=== PATIENT | male | born 1990 | race Hispanic/Latino ===

== ENCOUNTER 2024-10-25 00:11 | Emergency (ER) | payer SELFPAY ==
[2024-10-25] MEDS ORDERED: ONDANSETRON 4 MG/2 ML VIAL ONE (00:45)
[2024-10-25] MEDS ORDERED: NA CHLORIDE 0.9% 1,000 ML ONE (00:45)
[2024-10-25] MEDS ORDERED: MORPHINE 4 MG/ML SYR ONE (00:45)
[2024-10-25 01:07] LABS: Hemoglobin 16.5 g/dL (13.6-17.9); MCH 28.6 pg (27.0-35.0); MCHC 34.4 g/dL (32.0-36.0); MCV 83.4 fL (80-100); MPV 10.5 fL (7.6-11.3); Platelets 223 thou/uL (152-406); RBC Red Blood Cell Count 5.76 M/uL (4.33-5.43); Red Cell Distribution Width 14.1 % (12.1-15.2)
[2024-10-25 01:18] LABS: Sqamous Epithelial <5 /HPF (None Seen); Urine Bacteria <20 /HPF (<20); Urine Mucus 4+ /HPF (None Seen); Urine RBC >50 /HPF (None Seen)
[2024-10-25 01:19] LABS: Urine Bilirubin NEGATIVE (Negative); Urine Blood 3+ (OVER) (Negative); Urine Clarity Extremely Turbid (Clear); Urine Color Brown (Yellow); Urine Culture Reflex Order NOT NEEDED; Urine Glucose NEGATIVE (Negative); Urine Ketones NEGATIVE (Negative); Urine Microscopic Reflex YN NO UMIC; Urine Nitrite NEGATIVE (Negative); Urine Protein 2+ (Negative); Urine Urobilinogen Normal (Normal); Urine pH 5.5 (5.0-7.0)
[2024-10-25 01:21] LABS: Albumin/Globulin Ratio 1.1 (1.1-1.8); Anion Gap 8.7 mEq/L (5.0-15.0); Bilirubin Total 0.4 mg/dL (0.2-1.0); Globulin 3.7 g/dL (2.3-3.5); Potassium 3.7 mEq/L (3.5-5.1); Protein, Total 7.7 g/dL (6.4-8.2)
[2024-10-25] MEDS ORDERED: KETOROLAC 30 MG/ML INJ ONE (02:15)
--- NOTE | 2024-10-25 02:34 | RAD REPORT ---
EXAMINATION: Abdomen Pelvis W Contrast CLINICAL INDICATION: Male, 34 years old.FLANK PAIN TECHNIQUE: CT abdomen and pelvis was performed, after the administration of IV contrast, as [facility]. Axial, sagittal and coronal reconstructions were obtained. One or more of the following dose reduction techniques were used: Automated exposure control, adjustment of the mA and/o r kV according to patient size, and/or iterative reconstruction. Unless otherwise specified, incidental findings do not require dedicated imaging follow-up. [id number]. COMPARISON: No prior exam. FINDINGS: LOWER CHEST: No acute process identified.No significant pericardial effusion. UPPER GI: No significant abnormality. LIVER: Hepatic steatosis, but otherwise unremarkable. GALLBLADDER/BILE DUCTS: No biliary ductal dilatation.? PANCREAS: No mass, ductal dilation, or vanessa-pancreatic fluid. SPLEEN: Unremarkable. ADRENALS: No adrenal masses. KIDNEYS AND URETERS: Mild right-sided hydroureteronephrosis secondary to a punctate 1 to 2 mm stone a t the right UVJ.No suspicious renal mass.No renal calculi. ABDOMINAL AORTA AND OTHER VESSELS: Normal caliber aorta and IVC. PERITONEUM: No abnormal free fluid. No free air. LYMPH NODES: No pathologic lymphadenopathy. ABDOMINAL WALL: Unremarkable SMALL BOWEL/COLON: Small bowel has normal course and caliber. No colonic wall thickening or pericolon ic inflammatory changes.Normal appendix. URINARY BLADDER: Decompressed, not well assessed. REPRODUCTIVE ORGANS: No pathologic process. MUSCULOSKELETAL: No acute or suspicious osseous abnormality. ADDITIONAL FINDINGS: None. IMPRESSION: Mild right-sided hydroureteronephrosis secondary to a punctate 1 to 2 mm stone at the right UVJ.
--- NOTE | 2024-10-25 03:14 | ER ---
Nurse's Notes [facility] Name: Sherif Mccormick Jr Age: 34 yrs Sex: Male : 1990 Arrival Date: 10/25/2024 Time: 00:11 Bed 15 Private MD: Diagnosis: Calculus of ureter Presentation: 10/25 00:15 Chief complaint: Patient states: SUDDEN ONSET OF RIGHT FLANK PAIN. ha1 00:15 Coronavirus screen: Client denies travel out of the [place] in the last 14 days. Ebola ha1 Screen: No symptoms or risks identified at this time. Initial Sepsis Screen: Does the patient meet any 2 criteria? No. Patient's initial sepsis screen is negative. Does the patient have a suspected source of infection? No. Patient's initial sepsis screen is negative. Risk Assessment: Do you want to hurt yourself or someone else? Patient reports no desire to harm self or others. Onset of symptoms was October 25, 2024. 00:15 Method Of Arrival: Ambulatory ha1 00:15 Acuity: ISABEL 3 ha1 Triage Assessment: 00:15 General: Appears uncomfortable, Behavior is cooperative. Pain: Complains of pain in ha1 RIGHT FLANK PAIN Pain currently is 8 out of 10 on a pain scale. Neuro: Level of Consciousness is awake, alert, obeys commands, Oriented to person, place, time, situation. Cardiovascular: Patient's skin is warm and dry. Respiratory: Airway is patent Respiratory effort is even, unlabored, Respiratory pattern is regular, symmetrical. Historical: - Allergies: 00:33 No Known Allergies; ha1 - Immunization history:: Adult Immunizations up to date. - Infectious Disease History:: Denies. - Social history:: Smoking status: Patient denies any tobacco usage or history of. Screenin:41 [facility] ED Fall Risk Assessment (Adult) History of falling in the last 3 months, cp4 including since admission No falls in past 3 months (0 pts) Confusion or Disorientation No (0 pts) Intoxicated or Sedated No (0 pts) Impaired Gait No (0 pts) Mobility Assist Device Used No (0 pt) Altered Elimination No (0 pt) Score/Fall Risk Level 0 - 2 = Low Risk Oriented to surroundings, Maintained a safe environment, Assessed \T\ reinforced patient's understanding of fall precautions, Hourly rounding (assess needs \T\ fall precautionary measures) done. Abuse screen: Denies threats or abuse. Denies injuries from another. Nutritional screening: No deficits noted. Tuberculosis screening: No symptoms or risk factors identified. Assessment: 00:41 General: Appears in no apparent distress. uncomfortable, Behavior is calm, cooperative, cp4 appropriate for age. Pain: Complains of pain in right flank Pain does not radiate. Pain currently is 8 out of 10 on a pain scale. Neuro: Level of Consciousness is awake, alert, obeys commands, Oriented to person, place, time, situation. Cardiovascular: Patient's skin is warm and dry. Respiratory: Airway is patent Respiratory effort is even, unlabored. GI: No signs and/or symptoms were reported involving the gastrointestinal system. : Denies blood in urine. EENT: No signs and/or symptoms were reported regarding the EENT system. Derm: No signs and/or symptoms reported regarding the dermatologic system. Musculoskeletal: No signs and/or symptoms reported regarding the musculoskeletal system. Vital Signs: 00:15 BP 159 / 107; Pulse 84; Resp 18 S; Temp 97.6(O); Pulse Ox 99% on R/A; Weight 121.11 kg; ha1 Height 5 ft. 11 in. ; 01:56 BP 144 / 98; Pulse 81; Resp 18; Pulse Ox 97% ; cp4 03:48 BP 142 / 94; Pulse 84; Resp 18; Pulse Ox 98% ; cp4 00:15 Body Mass Index 37.24 (121.11 kg, 180.34 cm) ha1 ED Course: 00:14 Patient arrived in ED. gm2 00:20 Bar Wheeler MD is Attending Physician. rt 00:27 Alec Kaiser [facility]-C [facility]. dr5 00:33 Triage completed. ha1 00:37 Stefanie Mehta is Primary Nurse. cp4 00:38 No provider procedures requiring assistance completed. Initial lab(s) drawn, by alicia torres sent to lab. Urine collected: clean catch specimen, blood tinged. Inserted saline lock: 20 gauge in right antecubital area, using aseptic technique. Blood collected. Flushed with 10 mL NS. 00:41 Bed in low position. Call light in reach. Side rails up X 1. cp4 01:54 CT Abd/Pelvis - IV Contrast Only In Process Unspecified. EDMS 03:13 Claudio Proctor MD is Referral Physician. rt 03:47 intact, bleeding controlled, No redness/swelling at site. Pressure dressing applied. cp4 03:47 Provided Education on: kidney stone. cp4 03:48 Arm band placed on right wrist. Patient placed in waiting room. cp4 Administered Medications: 00:50 Drug: NS 0.9% IV 1000 ml IV at 1000 ml once; to be given as a bolus over 60 minutes cp4 Route: IV; Rate: 1000 ml; Site: right antecubital; 02:43 Follow up: IV Status: Completed infusion cp4 00:50 Drug: morphine IVP or IV 4 mg IVP once over 4 mins Route: IVP; Infused Over: 4 mins; cp4 Site: right antecubital; 02:05 Follow up: Response: No adverse reaction; Pain is decreased cp4 00:50 Drug: Ondansetron IVP 4 mg IVP once; over 2 minutes Route: IVP; Site: right antecubital;cp4 02:05 Follow up: Response: No adverse reaction cp4 00:50 Drug: NS 0.9% IV 1000 ml IV at 1000 ml once; to be given as a bolus over 60 minutes cp4 Route: IV; Rate: 1000 ml; Site: right antecubital; 02:44 Follow up: IV Status: Completed infusion cp4 02:18 Drug: Ketorolac IVP 15 mg IVP once Route: IVP; Site: right antecubital; cp4 02:43 Follow up: Response: No adverse reaction; Pain is decreased cp4 Medication: 00:41 VIS not applicable for this client. cp4 Outcome: 03:13 Discharge ordered by . rt 03:47 Discharged to home ambulatory, cp4 03:47 Condition: stable 03:47 Discharge instructions given to patient, family, Instructed on discharge instructions, follow up and referral plans. medication usage, Demonstrated understanding of instructions, follow-up care, medications, Prescriptions given X 2, 03:49 Patient left the ED. cp4 Signatures: Dispatcher [employer] EDNH Maggy Daniel RN RN ha1 Bar Wheeler MD MD rt Stefanie Mehta cp4 Leonie Membreno gm2 Alec Kaiser, KETTLE CHIPPER-C KETTLE CHIPPER-Cdr5 Corrections: (The following items were deleted from the chart) 00:35 00:15 BP 192 / 75; Pulse 90bpm; Resp 18bpm; Spontaneous; Pulse Ox 99% RA; Temp 97.6F ha1 Oral; 121.11 kg; Height 5 ft. 11 in.; BMI: 37.2; ha1
--- NOTE | 2024-10-25 03:14 | EDPHYS ---
Physician Documentation [facility] [place], [place] Name: Sherif Mccormick Jr Age: 34 yrs Sex: Male : 1990 Arrival Date: 10/25/2024 Time: 00:11 Bed 15 Private MD: ED Physician Bar Wheeler HPI: 10/25 01:08 This 34 yrs old Male presents to ER via Ambulatory with complaints of Back dr5 Pain. 01:08 The patient presents with pain that is acute, with no known mechanism of injury. The dr5 symptoms are located in the right flank, right mid back and right low back. Onset: The symptoms/episode began/occurred acutely. Patient is a 34-year-old male with no past medical history coming in with right flank/right back pain that started 30 minutes prior to arrival. Patient denies trauma or falls. Patient states that he has not been drinking enough water and his urine has gotten darker. Patient denies fever, cough, congestion, nausea, vomiting, constipation, or diarrhea. Patient denies numbness / tingling down legs, denies perirectal numbness, IV drug use.. Historical: - Allergies: 00:33 No Known Allergies; ha1 - Immunization history:: Adult Immunizations up to date. - Infectious Disease History:: Denies. - Social history:: Smoking status: Patient denies any tobacco usage or history of. ROS: 01:08 Constitutional: as per hpi dr5 Exam: 01:08 Constitutional: This is a well developed, well nourished patient who is awake, alert, dr5 and in no acute distress. Head/Face: Normocephalic, atraumatic. ENT: Nares patent. No nasal discharge, no septal abnormalities noted. Tympanic membranes are normal and external auditory canals are clear. Oropharynx with no redness, swelling, or masses, exudates, or evidence of obstruction, uvula midline. Mucous membranes moist. Neck: Trachea midline, no thyromegaly or masses palpated, and no cervical lymphadenopathy. Supple, full range of motion without nuchal rigidity, or vertebral point tenderness. No Meningismus. Chest/axilla: Normal chest wall appearance and motion. Nontender with no deformity. No lesions are appreciated. Cardiovascular: Regular rate and rhythm with a normal S1 and S2. Normal PMI, no JVD. No pulse deficits. Respiratory: Lungs have equal breath sounds bilaterally, clear to auscultation. No rales, rhonchi or wheezes noted. No increased work of breathing, no retractions or nasal flaring. Back: No spinal tenderness. Mild costovertebral tenderness noted on right flank with palpation. Full range of motion. Skin: Warm, dry with normal turgor. Normal color with no rashes, no lesions, and no evidence of cellulitis. MS/ Extremity: Pulses equal, no cyanosis. Neurovascular intact. Full, normal range of motion. Neuro: Awake and alert, GCS 15, oriented to person, place, time, and situation. Cranial nerves II-XII grossly intact. Motor strength 5/5 in all extremities. Sensory grossly intact. Cerebellar exam normal. Normal gait. Vital Signs: 00:15 BP 159 / 107; Pulse 84; Resp 18 S; Temp 97.6(O); Pulse Ox 99% on R/A; Weight 121.11 kg; ha1 Height 5 ft. 11 in. ; 01:56 BP 144 / 98; Pulse 81; Resp 18; Pulse Ox 97% ; cp4 03:48 BP 142 / 94; Pulse 84; Resp 18; Pulse Ox 98% ; cp4 00:15 Body Mass Index 37.24 (121.11 kg, 180.34 cm) ha1 MDM: 00:28 Medical Screening Exam initiated dr5 01:08 Differential diagnosis: Pyelonephritis sprain, Rhabdomyolysis, urinary tract infection, dr5 dehydration, pyelonephritis. Data reviewed: vital signs, nurses notes, lab test result(s), radiologic studies. 03:48 I considered the following discharge prescriptions or medication management in the rt emergency department Medications were administered in the Emergency Department. See MAR. Independent interpretation of the following test(s) in the Emergency Department CT Scan: My interpretation is Ureteral stone seen on my interpretation of CT scan images. Counseling: I had a detailed discussion with the patient and/or guardian regarding the historical points, exam findings, and any diagnostic results supporting the discharge/admit diagnosis, lab results, radiology results, the need for outpatient follow up, to return to the emergency department if symptoms worsen or persist or if there are any questions or concerns that arise at home. Response to treatment: the patient's symptoms have resolved after treatment. 10/25 00:28 Order name: Urinalysis w/ reflexes; Complete Time: 01:40 dr5 10/25 00:28 Order name: CBC w/o diff; Complete Time: 01:11 dr5 10/25 00:28 Order name: CMP; Complete Time: :40 dr5 10/25 01:04 Order name: Creatine Phosphokinase; Complete Time: :40 EDMS 10/25 00:42 Order name: CT Abd/Pelvis - IV Contrast Only; Complete Time: 02:57 dr5 Administered Medications: 00:50 Drug: NS 0.9% IV 1000 ml IV at 1000 ml once; to be given as a bolus over 60 minutes cp4 Route: IV; Rate: 1000 ml; Site: right antecubital; 02:43 Follow up: IV Status: Completed infusion cp4 00:50 Drug: morphine IVP or IV 4 mg IVP once over 4 mins Route: IVP; Infused Over: 4 mins; cp4 Site: right antecubital; 02:05 Follow up: Response: No adverse reaction; Pain is decreased cp4 00:50 Drug: Ondansetron IVP 4 mg IVP once; over 2 minutes Route: IVP; Site: right antecubital;cp4 02:05 Follow up: Response: No adverse reaction cp4 00:50 Drug: NS 0.9% IV 1000 ml IV at 1000 ml once; to be given as a bolus over 60 minutes cp4 Route: IV; Rate: 1000 ml; Site: right antecubital; 02:44 Follow up: IV Status: Completed infusion cp4 02:18 Drug: Ketorolac IVP 15 mg IVP once Route: IVP; Site: right antecubital; cp4 02:43 Follow up: Response: No adverse reaction; Pain is decreased cp4 Disposition: 03:48 Co-signature as Attending Physician, Bar Wheeler MD I reviewed the patient's care rt provided by Advanced Practice Provider \T\ agree w/ the diagnosis \T\ care plan. I personally saw the pt \T\ performed a substantive portion of the visit, incldng all aspects of the (History/Exam/Medical Decision Making). Evaluated patient, pain-free at my evaluation, discussed findings with him as well as recommendations for outpatient follow-up with urology.. Disposition Summary: 10/25/24 03:13 Discharge Ordered Notes: Location: Home rt Problem: new rt Symptoms: have improved rt Condition: Stable rt Diagnosis - Calculus of ureter rt Followup: rt - With: Claudio Proctor MD - When: 5 - 6 days - Reason: Discharge Instructions: - Discharge Summary Sheet rt - Kidney Stones rt Forms: - Medication Reconciliation Form rt - Antibiotic Education rt - Prescription Opioid Use rt - Patient Portal Instructions rt - Leadership Thank You Letter rt - Work release form cp4 Prescriptions: - Zofran 4 mg Oral tablet - take 1 tablet ORAL route every 6 hours As needed; 15 tablet; Refills: 0, rt Product Selection Permitted - Tramadol 50 mg Oral Tablet - take 1 tablet ORAL route every 8 hours as needed; 12 tablet; Refills: 0, rt Product Selection Permitted Signatures: Dispatcher [employer] Maggy Barroso RN RN ha1 Bar Wheeler MD MD rt Stefanie Mehta cp4 Alec Kaiser, SALVAGE MECHANIC-C SALVAGE MECHANIC-Cdr5 Corrections: (The following items were deleted from the chart) 01:03 00:43 CREATINE PHOSPHOKINASE+C.LAB.BRZ ordered. EDCO EDMS
[2024-10-27 02:10] VITALS: TEMP 97.6
[2024-10-27 02:14] VITALS: BP 142/94; O2SAT 98
== END 2024-10-25 03:49 | disposition home or self-care (01) ==
LOC: ER 00:11
DX: N20.1 Calculus of ureter (principal)
CPT/HCPCS: 36415; 74177; 80053; 81003; 82550; 85027; 96361; 96374; 96375; 99284; J2405; J7030; Q9967